=== PATIENT | female | born 1945 | race Two or more races ===

== ENCOUNTER 2018-03-27 13:47 | Outpatient (CLI) | payer OTHER ==
[~2018-03-27 13:47] MED LIST: DICLOFENAC POTA50 MG PO; NORFLEX100MG PO
== END 2018-03-27 13:54 | disposition home or self-care (01) ==
LOC: MAMO-SONO 13:47
DX: Z12.31 Encounter for screening mammogram for malignant neoplasm of breast (principal); Z87.898 Personal history of other specified conditions; N64.4 Mastodynia

== ENCOUNTER 2018-09-02 13:27 | Outpatient (CLI) | payer OTHER | END 2018-09-02 13:40 | disposition home or self-care (01) | LOC: SONOGRAMA 13:27 | DX: E04.1 Nontoxic single thyroid nodule (principal) ==

== ENCOUNTER → 2018-09-17 | Outpatient (CLI) | payer OTHER | END | disposition home or self-care (01) | LOC: NUCLEAR 11:00 | DX: M81.0 Age-related osteoporosis without current pathological fracture (principal) ==

== ENCOUNTER → 2018-10-09 | Outpatient (CLI) | payer OTHER | END | disposition home or self-care (01) | LOC: SONOGRAMA 09:58 | DX: E04.1 Nontoxic single thyroid nodule (principal) ==

== ENCOUNTER 2018-12-10 11:02 | Outpatient (CLI) | payer OTHER | END 2018-12-10 14:27 | disposition home or self-care (01) | LOC: MAMO-SONO 11:02 | DX: R92.8 Other abnormal and inconclusive findings on diagnostic imaging of breast (principal) ==

== ENCOUNTER 2019-02-05 07:47 | Outpatient (CLI) | payer OTHER | END 2019-02-05 07:50 | disposition home or self-care (01) | LOC: SONOGRAMA 07:47 | DX: E04.2 Nontoxic multinodular goiter (principal) ==

== ENCOUNTER 2020-02-05 14:07 | Outpatient (CLI) | payer OTHER | END 2020-02-05 14:16 | disposition home or self-care (01) | LOC: SONOGRAMA 14:07 | PROVIDERS: ATTEND Internal Medicine | DX: E04.2 Nontoxic multinodular goiter (principal) ==

== ENCOUNTER 2020-02-10 14:07 | Outpatient (CLI) | payer OTHER | END 2020-02-10 14:16 | disposition home or self-care (01) | LOC: MAMO-SONO 14:07 | PROVIDERS: ATTEND General Practice | DX: Z12.31 Encounter for screening mammogram for malignant neoplasm of breast (principal); N64.4 Mastodynia ==

== ENCOUNTER → 2020-02-16 | Emergency (ER) | payer OTHER ==
[~2020-02-16] VITALS: Ht 157.5 cm; Wt 59.0 kg
[~2020-02-16] MED LIST changes: +CALCIUM500 M2; +CRESTOR10 MG
== END | disposition home or self-care (01) ==
LOC: ER 14:22
DX: S92.354A Nondisplaced fracture of fifth metatarsal bone, right foot, initial encounter for closed fracture (principal); X50.0XXA Overexertion from strenuous movement or load, initial encounter; Y93.01 Activity, walking, marching and hiking; Y92.413 State road as the place of occurrence of the external cause; Y99.8 Other external cause status

== ENCOUNTER 2020-02-24 09:03 | Outpatient (CLI) | payer OTHER | END 2020-02-24 09:11 | disposition home or self-care (01) | LOC: LAB 09:03 | PROVIDERS: ATTEND Orthopaedic Surgery | DX: M85.88 Other specified disorders of bone density and structure, other site (principal); E55.9 Vitamin D deficiency, unspecified; E21.2 Other hyperparathyroidism; E88.89 Other specified metabolic disorders; M81.8 Other osteoporosis without current pathological fracture; E56.1 Deficiency of vitamin K ==

== ENCOUNTER 2020-03-25 10:19 | Outpatient (CLI) | payer OTHER | END 2020-03-25 10:29 | disposition home or self-care (01) | LOC: NUCLEAR 10:19 | PROVIDERS: ATTEND Orthopaedic Surgery | DX: M81.0 Age-related osteoporosis without current pathological fracture (principal) ==

== ENCOUNTER 2020-09-23 14:43 | Outpatient (CLI) | payer OTHER | END 2020-09-23 14:46 | disposition home or self-care (01) | LOC: SONOGRAMA 14:43 | PROVIDERS: ATTEND Surgery Surgical Oncology | DX: E04.2 Nontoxic multinodular goiter (principal) ==

== ENCOUNTER → 2021-11-24 09:00 | Outpatient (CLI) | payer OTHER | END | disposition home or self-care (01) | LOC: SONOGRAMA 09:00 | PROVIDERS: ATTEND Internal Medicine Endocrinology, Diabetes & Metabolism | DX: E03.9 Hypothyroidism, unspecified (principal); I88.9 Nonspecific lymphadenitis, unspecified ==

== ENCOUNTER → 2022-01-26 | Emergency (ER) | payer OTHER ==
[~2022-01-26] VITALS: Ht 175.3 cm; Wt 80.7 kg
== END | disposition left against medical advice (07) ==
LOC: ER 12:08
DX: Z53.21 Procedure and treatment not carried out due to patient leaving prior to being seen by health care provider (principal)

== ENCOUNTER 2022-04-23 07:44 | Outpatient (CLI) | payer OTHER | END 2022-04-23 07:48 | disposition home or self-care (01) | LOC: NUCLEAR 07:44 | PROVIDERS: ATTEND Internal Medicine | DX: I20.9 Angina pectoris, unspecified (principal) | CPT/HCPCS: 78452; 93017; 93880; A9500; J0153 ==

== ENCOUNTER 2022-05-07 13:30 | Outpatient (CLI) | payer OTHER | END 2022-05-07 14:15 | disposition home or self-care (01) | LOC: SONOGRAMA 13:30 | PROVIDERS: ATTEND General Practice | DX: M25.511 Pain in right shoulder (principal); M25.512 Pain in left shoulder ==

== ENCOUNTER → 2022-05-08 13:29 | Outpatient (CLI) | payer OTHER | END | disposition home or self-care (01) | LOC: NUCLEAR 13:29 | PROVIDERS: ATTEND Internal Medicine Endocrinology, Diabetes & Metabolism | DX: M81.0 Age-related osteoporosis without current pathological fracture (principal) ==

== ENCOUNTER 2022-05-17 14:48 | Outpatient (CLI) | payer OTHER | END 2022-05-17 14:52 | disposition home or self-care (01) | LOC: MAMO-SONO 14:48 | DX: Z12.31 Encounter for screening mammogram for malignant neoplasm of breast (principal) ==

== ENCOUNTER 2023-04-12 14:47 | Outpatient (CLI) | payer OTHER | END 2023-04-12 14:51 | disposition home or self-care (01) | LOC: SONOGRAMA 14:47 | PROVIDERS: ATTEND Surgery Surgical Oncology | DX: E04.2 Nontoxic multinodular goiter (principal) ==

== ENCOUNTER 2023-05-20 15:17 | Outpatient (CLI) | payer OTHER | END 2023-05-20 15:27 | disposition home or self-care (01) | LOC: MAMO-SONO 15:17 | PROVIDERS: ATTEND General Practice | DX: N63.11 Unspecified lump in the right breast, upper outer quadrant (principal); N63.21 Unspecified lump in the left breast, upper outer quadrant; Z12.31 Encounter for screening mammogram for malignant neoplasm of breast ==

== ENCOUNTER 2023-08-22 10:57 | Outpatient (CLI) | payer OTHER | END 2023-08-22 10:58 | disposition home or self-care (01) | LOC: NUCLEAR 10:57 | PROVIDERS: ATTEND Internal Medicine | DX: I35.0 Nonrheumatic aortic (valve) stenosis (principal) ==

== ENCOUNTER 2024-07-17 12:42 | Outpatient (CLI) | payer OTHER | END 2024-07-17 12:47 | disposition home or self-care (01) | LOC: EDBD 12:42 → RAD 12:42 | PROVIDERS: ATTEND Orthopaedic Surgery | DX: M43.07 Spondylolysis, lumbosacral region (principal); M50.322 Other cervical disc degeneration at C5-C6 level; M54.16 Radiculopathy, lumbar region; M48.061 Spinal stenosis, lumbar region without neurogenic claudication; M48.02 Spinal stenosis, cervical region ==

== ENCOUNTER → 2024-07-17 | Outpatient (CLI) | payer OTHER | END | disposition home or self-care (01) | LOC: EKG 13:00 | PROVIDERS: ATTEND Orthopaedic Surgery | DX: M43.07 Spondylolysis, lumbosacral region (principal); M50.322 Other cervical disc degeneration at C5-C6 level; M54.16 Radiculopathy, lumbar region; M48.061 Spinal stenosis, lumbar region without neurogenic claudication; M48.02 Spinal stenosis, cervical region ==